=== PATIENT | female | born 1935 | race Caucasian/White ===

== ENCOUNTER 2020-03-10 10:09 | Emergency (ER) | payer MEDICARE ==
[~2020-03-10] VITALS: Ht 162.6 cm; Wt 96.2 kg
[~2020-03-10 10:09] MED LIST: ALEVE220 M1 PO; APAP500 PO; GLUCOTROL5 MG PO; LEVOTHYROXIN0.125 M1 PO; LISINOPRIL-HCT1 EAC1 PO; LOVASTAT40 PO; MYLANTA 12 OZ355 M1 PO; SERTRALINE HCL50 MG PO; VENTOLIN HFA INH8 GM INH
[2020-03-10] MEDS ORDERED: BEANO300 UNIT PO (10:21)
[2020-03-10] MEDS ORDERED: NOVOLOG100 UNIT/1 SUBQ (10:22)
[2020-03-10] MEDS ORDERED: CLEOCIN HCL300 MG PO (11:16)
[2020-03-10] MEDS ORDERED: KEFLEX500 M1 PO (11:16)
[2020-03-10] MEDS ORDERED: NORCO 5-325 TA1 EAC1 PO (11:16)
[2020-03-10 11:27] VITALS: BP 186/70
== END 2020-03-10 11:29 | disposition home or self-care (01) ==
LOC: M.ERS 10:09
DX: L72.3 Sebaceous cyst (principal); I10 Essential (primary) hypertension; E03.9 Hypothyroidism, unspecified; E78.5 Hyperlipidemia, unspecified; E11.40 Type 2 diabetes mellitus with diabetic neuropathy, unspecified; K21.9 Gastro-esophageal reflux disease without esophagitis; F41.9 Anxiety disorder, unspecified; Z79.4 Long term (current) use of insulin; Z88.0 Allergy status to penicillin; Z88.2 Allergy status to sulfonamides; Z88.6 Allergy status to analgesic agent

== ENCOUNTER 2021-06-01 15:47 | Emergency (ER) | payer OTHER ==
[~2021-06-01] VITALS: Ht 162.6 cm; Wt 101.2 kg
[~2021-06-01 15:47] MED LIST changes: +BEANO300 UNIT PO; +CLEOCIN HCL300 MG PO; +KEFLEX500 M1 PO; +NORCO 5-325 TA1 EAC1 PO; +NOVOLOG100 UNIT/1 SUBQ
[2021-06-01] MEDS ORDERED: NORCO5 PO ×2 (17:07→17:16)
[2021-06-01] MEDS ORDERED: IBUPROFEN 600600 M1 PO (17:07)
[2021-06-01 17:20] VITALS: BP 210/101
== END 2021-06-01 17:20 | disposition home or self-care (01) ==
LOC: M.ERS 15:47
DX: M25.562 Pain in left knee (principal); E11.40 Type 2 diabetes mellitus with diabetic neuropathy, unspecified; E78.5 Hyperlipidemia, unspecified; I10 Essential (primary) hypertension; M19.90 Unspecified osteoarthritis, unspecified site; E03.9 Hypothyroidism, unspecified; K21.9 Gastro-esophageal reflux disease without esophagitis; F41.9 Anxiety disorder, unspecified; Z79.899 Other long term (current) drug therapy; Z79.4 Long term (current) use of insulin; Z88.5 Allergy status to narcotic agent; Z88.0 Allergy status to penicillin; Z88.2 Allergy status to sulfonamides; X50.1XXA Overexertion from prolonged static or awkward postures, initial encounter; Y93.89 Activity, other specified; Y92.098 Other place in other non-institutional residence as the place of occurrence of the external cause; Y99.8 Other external cause status

== ENCOUNTER → 2021-07-02 | Outpatient (CLI) | payer OTHER ==
[~2021-07-02] MED LIST changes: +FLONASE 0.05%50 MCG NARES; +IBUPROFEN 600600 M1 PO; +LEVEMIR100 UNIT/1 SUBQ; +NORCO5 PO; +PRINIVIL40 MG PO; +SYMBICORT80 MCG/4.1 INH; +metformin PO
== END ==
LOC: M.PC 10:15
PROVIDERS: ATTEND Physical Medicine & Rehabilitation
DX: M47.816 Spondylosis without myelopathy or radiculopathy, lumbar region (principal); M48.062 Spinal stenosis, lumbar region with neurogenic claudication; E11.9 Type 2 diabetes mellitus without complications; I10 Essential (primary) hypertension; E03.9 Hypothyroidism, unspecified; Z88.0 Allergy status to penicillin

== ENCOUNTER → 2021-07-25 | Outpatient (CLI) | payer OTHER | LOC: M.MRI 11:21 | PROVIDERS: ATTEND Physical Medicine & Rehabilitation | DX: M47.816 Spondylosis without myelopathy or radiculopathy, lumbar region (principal); M47.817 Spondylosis without myelopathy or radiculopathy, lumbosacral region; M48.061 Spinal stenosis, lumbar region without neurogenic claudication ==

== ENCOUNTER → 2021-08-06 | Outpatient (CLI) | payer OTHER | LOC: M.PC 10:25 | PROVIDERS: ATTEND Physical Medicine & Rehabilitation | DX: M47.816 Spondylosis without myelopathy or radiculopathy, lumbar region (principal); M47.817 Spondylosis without myelopathy or radiculopathy, lumbosacral region; M48.061 Spinal stenosis, lumbar region without neurogenic claudication; I10 Essential (primary) hypertension; E03.9 Hypothyroidism, unspecified; K21.9 Gastro-esophageal reflux disease without esophagitis; E78.5 Hyperlipidemia, unspecified ==